=== PATIENT | female | born 1930 | race Caucasian/White ===

== ENCOUNTER 2018-02-13 16:44 | Inpatient (IN) | payer MEDICARE, BC ==
--- NOTE | 2018-02-13 16:53 | ED Physician Chart ---
ED Chief Complaint/HPI - Patient Information Date Seen:: 02/13/18 Time Seen:: 16:40 Chief Complaint:: Confusion History of Present Illness:: onset x one week of confusion, disorientation, and agitated; no report of LOC, ALOC, AMS, trauma, H/As, neck pain, C/P, SOB, Abd. Pain, A/N/V/D/C, fever, chills, SIs, or urinary s/s Historian:: Patient, Family Member Review:: Nurse's Note Reviewed ED Review of Systems - Review of Systems General/Constitutional: No fever, No chills, No weight loss, No weakness, No diaphoresis, No edema, No loss of appetite Skin: No skin lesions, No rash, No bruising Head: No headache, No light-headedness Eyes: No loss of vision, No pain, No diplopia ENT: No earache, No nasal drainage, No sore throat, No tinnitus Neck: No neck pain, No swelling, No thyromegaly, No stiffness, No mass noted Cardio Vascular: No chest pain, No palpitations, No PND, No orthopnea, No edema Pulmonary: No SOB, No cough, No sputum, No wheezing GI: No nausea, No vomiting, No diarrhea, No pain, No melena, No hematochezia, No constipation, No hematemesis G/U: No dysuria, No frequency, No hematuria, No nacturia Warp Preparer: No vaginal discharge, No abnormal vaginal bleed, No contraction Musculoskeletal: No bone or joint pain, No back pain, No muscle pain Endocrine: No polyuria, No polydipsia Psychiatric: Prior psych history, No depression, Anxiety, No suicidal ideation, No homicidal ideation, No auditory hallucination, No visual hallucination Hematopoietic: No bruising, No lymphadenopathy Allergic/Immuno: No urticaria, No angioedema Neurological: No syncope, No focal symptoms, No weakness, No paresthesia, No headache, No seizure, No dizziness, Confusion, No vertigo ED Past Medical History - Past Medical History Obtainable: Yes Past Medical History: HTN, Dyslipidemia, Dementia, Cataract Family History: Diabetes Melitus, HTN Social History: Non Smoker, No Alcohol, No Drug Use, , Care Facility Surgical History: None Psychiatricy History: Bipolar, Dementia Medication: Reviewed Family Medical History - Family Member Mother History Unknown: Yes ED Physical Exam - Physical Examination General/Constitutional: Awake, Well-developed, well-nourished, Alert, No distress, GCS 15, Non-toxic appearing, Ambulatory Head: Atraumatic Eyes: Lids, conjuctiva normal, PERRL, EOMI Skin: Nl inspection, No rash, No skin lesions, No ecchymosis, Well hydrated, No lymphadenopathy ENMT: External ears, nose nl, Nasal exam nl, Lips, teeth, gums nl Neck: Nontender, Full ROM w/o pain, No JVD, No nuchal rigidity, No bruit, No mass, No stridor Respiratory: Nl effort/Exclusion, Clear to Auscultation, No Wheeze/Rhonchi/Rales Cardio Vascular: RRR, No murmur, gallop, rubs, NL S1 S2, Carotid/Femoral/Distal pulses equal bilaterally GI: No tenderness/rebounding/guarding, No organomegaly, No hernia, Normal BS's, Nondistended, No mass/bruits, No McBurney tenderness : No CVA tenderness Extremities: No tenderness or effusion, Full ROM, normal strength in all extremities, No edema, Normal digits & nails Neuro/Psych: Alert/oriented, DTR's symmetric, Normal sensory exam, Normal motor strength, Judgement/insight normal, Mood normal, Normal gait, No focal deficits Other Neuro/Psych comments:: Disoriented and Confused; + Psychomotor Agitation; no SIs Misc: Normal back, No paraspinal tenderness ED Labs/Radiology/EKG Results - Lab Results Comments:: BUN: 29 - Radiology Results Comments:: NAD - EKG Interpretations EKG Time:: 17:26 Rate & Rhythm: 67; NSR Comments:: LVH; non-specific st-t changes ED Septic Shock - . Is Septic Shock (SBP<90, OR Lactate>4 mmol\L) present?: No ED Reassessment (Disposition) - Reassessment Reassessment Condition:: Improved - Diagnosis Diagnosis:: Medical Clearance; Dementia; Bipolar Disorder; Agitation; Psychosis - Aftercare/Follow up Instructions Aftercare/Follow-Up Instructions:: Counseled pt regarding lab results/diagnosis & need follow up, Counseled pt & family regarding lab results/diagnosis & need follow up - Patient Disposition Discharge/Transfer:: Acute Care w/in this hosp Accepting Physician:: Dr. Carney Time Called:: 1800 Time Responded:: 18:00 Admitted to:: [facility] Spoke to:: Dr. Carney Admitting Medical Physician:: Dr. Carney Admitting Psych Physician:: Dr. Hoyos Condition at Disposition:: Stable, Improved
[2018-02-13 17:14] LABS: % EOSINOPHILS 0.3 % (0.0-5.0); % LYMPHOCYTES 5.9 % (20.0-50.0); % MONOCYTES 4.7 % (2.0-10.0); % NEUTROPHILS 89.1 % (40.0-80.0); HEMATOCRIT 42.7 % (41.0-60); HEMOGLOBIN 14.2 gm/dL (12-16); LYMPHOCYTE ABSOLUTE 0.6 Th/cmm (1.5-3.0); MEAN CELL VOLUME 81.7 fl (81-100); MEAN CORPUSCULAR HEMOGLOBIN 27.1 pg (27.0-31.0); MEAN CORPUSCULAR HGB CONC 33.2 pg (28.0-36.0); MEAN PLATELET VOLUME 6.6 fl; MONOCYTE ABSOLUTE 0.5 Th/cmm (0.3-1.0); NEUTROPHILE ABSOLUTE 9.4 Th/cmm (1.8-8.0); PLATELET COUNT 302 Th/cmm (150-400); RED BLOOD COUNT 5.23 Mil/cmm (3.80-5.20); RED CELL DISTRIBUTION WIDTH 14.7 % (11.5-20.0); WHITE BLOOD COUNT 10.5 Th/cmm (4.8-10.8)
[2018-02-13 17:28] LABS: URINE MICROSCOPIC INDICATED? YES; URINE SOURCE CLEAN C
[2018-02-13 17:32] LABS: INR 0.96 (0.5-1.4)
[2018-02-13 17:32] LABS: URINE BILIRUBIN NEGATIVE (NEGATIVE); URINE BLOOD NEGATIVE (NEGATIVE); URINE GLUCOSE (UA) NEGATIVE (NEGATIVE); URINE KETONE NEGATIVE (NEGATIVE); URINE LEUKOCYTE ESTERASE NEGATIVE (NEGATIVE); URINE NITRATE NEGATIVE (NEGATIVE); URINE PH 5.5 (4.6 - 8.0); URINE PROTEIN NEGATIVE (NEGATIVE); URINE UROBILINOGEN 0.2 E.U./dL (0.2 - 1.0)
[2018-02-13 17:33] LABS: URINE CLARITY CLEAR (CLEAR); URINE COLOR YELLOW
[2018-02-13 17:38] LABS: ALB/GLOB RATIO 1.2 (1.0-1.8); ALBUMIN 3.8 gm/dL (3.7-5.3); ALKALINE PHOSPHATASE 64 U/L (34-104); ANION GAP 13.8 (7.0-16.0); BILIRUBIN,TOTAL 0.5 mg/dL (0.3-1.0); BUN - UREA NITROGEN 29 mg/dL (7-25); CALCIUM SERUM 10.3 mg/dL (8.6-10.3); CARBON DIOXIDE 20.3 mEq/L (21.0-31.0); CHLORIDE 104 mEq/L (98-107); CHOLESTEROL 197 mg/dL (<200); CREATININE - SERUM 0.8 mg/dL (0.6-1.2); CREATININE KINASE 24 U/L (30-223); GLUCOSE 134 mg/dL (70-105); HDL -HIGH DENSITY LIPOPROTEIN 57 mg/dL (23-92); POTASSIUM SERUM 4.1 mEq/L (3.5-5.1); SGOT 11 U/L (13-39); SGPT/ALT 11 U/L (7-52); SODIUM SERUM 134 mEq/L (136-145); TRIGLYCERIDES 82 mg/dL (<150)
[2018-02-13 17:39] LABS: CHOLESTEROL 197 mg/dL (<200); HDL -HIGH DENSITY LIPOPROTEIN 57 mg/dL (23-92); SALICYLATES (ASPIRIN) < 25.0 mg/L (30.0-100.0)
[2018-02-13 17:52] LABS: ACETAMINOPHEN < 10.0 ug/mL (10.0-30.0); TRIGLYCERIDES 82 mg/dL (<150)
[2018-02-13 18:01] LABS: AMPHETAMINE URINE NEGATIVE (NEGATIVE); BARBITURATES URINE NEGATIVE (NEGATIVE); CANNABINOID THC NEGATIVE (NEGATIVE); COCAINE METABOLITE QUAL URINE NEGATIVE (NEGATIVE); METHADONE URINE NEGATIVE (NEGATIVE); METHAMPHETAMINES QUAL URINE NEGATIVE (NEGATIVE); OPIATES (MORPHINE) QUAL. URINE NEGATIVE (NEGATIVE); PHENCYCLIDINE (PCP) URINE NEGATIVE (NEGATIVE); TRICYCLICS (TCA) QUAL. URINE POSITIVE (NEGATIVE)
[2018-02-13 18:02] LABS: BENZODIAZEPINES QUAL URINE NEGATIVE (NEGATIVE)
[2018-02-13 22:59] VITALS: BP 161/75
--- NOTE | 2018-02-14 07:41 | Diagnostic Imaging Report ---
Head CT without intravenous contrast Indication: Altered mental status, dementia Comparison: None Technique: Axial images were obtained from the vertex to the skull base without IV contrast. Coronal reconstructions were made. Total DLP: 635, CTDI35 FINDINGS: Images of the brain obtained without contrast demonstrate no acute hemorrhage. No mass lesions identified. The ventricles and basal cisterns are patent. The crane-white matter differentiation is preserved. There is no mass effect or midline shift. Atrophy is noted. No skull fractures identified. No soft tissue swelling. The paranasal sinuses are clear. There is trace fluid within the left mastoid air cells. IMPRESSION: No evidence of acute intracranial hemorrhage. Atrophy Trace fluid in the left mastoid air cells.
[2018-02-14 09:27] LABS: URINE EPITHELIAL CELLS OCCASIONAL /lpf (FEW)
[2018-02-14 09:28] LABS: URINE BACTERIA FEW /hpf (NONE SEEN)
[2018-02-14 16:27] LABS: A1C % 6.6 % (4.0-6.0)
--- NOTE | 2018-02-14 19:20 | Consultation ---
DATE OF CONSULTATION: 02/13/2018 MEDICAL CONSULTATION CHIEF COMPLAINT: Worsening psychosis, labile mood and loose thought process. HISTORY OF PRESENT ILLNESS: The patient is a pleasant, but very confused 87-year-old female who is a patient of mine at [facility]. She has a history of hypertension and a possible new-onset diabetes. She was found to have worsening confusion, psychosis and loose thought process as well. She was sent to the hospital to be admitted to Geropsych Unit for inpatient psychiatric care. PAST MEDICAL HISTORY: Significant for hypertension and possible diabetes. SOCIAL HISTORY: Denies any alcohol, tobacco or drug use. FAMILY HISTORY: Noncontributory. ALLERGIES: No known drug allergies. SURGICAL HISTORY: No recent surgeries. MEDICATIONS: We were unable to get a list from the facility. We have started her on lisinopril. REVIEW OF SYSTEMS: GENERAL: Positive recent confusion, worsening fatigue, loose thought process and decreased appetite. HEENT: No recent head trauma or change in vision, taste, hearing or smell. NEUROLOGIC: No history of stroke or seizure. NECK: No recent tracheal deviation. SKIN: No recent rashes. PSYCHIATRIC: Positive for psychosis and recently worsening psychosis along with a loose thought process and inability to concentrate. EXTREMITIES: No recent edema. MUSCULOSKELETAL: No history of DJD or recent falls. ABDOMEN: No recent distention. RESPIRATORY: No COPD or asthma. PHYSICAL EXAMINATION: VITAL SIGNS: Temperature 98.2 degrees, heart rate 67, respirations 18, blood pressure 161/75. Currently, in no pain. GENERAL: No acute distress. She is awake, alert to name only. She is very confused. HEENT: No acute issues. PSYCHIATRY: Labile mood. NECK: Trachea is midline. CARDIOVASCULAR: Regular rate and rhythm. SKIN: No rashes. NEUROLOGIC: No evidence of acute stroke or seizure activity. EXTREMITIES: 1+ edema in lower extremities bilaterally. LABORATORY DATA: Drug screen is positive for tricyclics. White count of 10.5, hemoglobin 14.2 and platelet count 202,000. INR is 0.96. Sodium 134, potassium 4.1, chloride 104, bicarbonate 20.3, BUN is 29, creatinine is 0.8. BNP 125. ASSESSMENT: 1. Hypertension, out of control. 2. Hyponatremia. 3. Metabolic encephalopathy. PLAN: I have started the patient on lisinopril. Follow up on hemoglobin A1c as well. Encourage fluids. Follow up on chemistry panel in a few days if needed. Discussed weight loss with the patient as well. She will be seen by Dr. Marcos for psychiatric care. JOB# [id number]
--- NOTE | 2018-02-14 22:30 | Psychosocial Evaluation ---
DATE OF SERVICE: 02/14/2018 IDENTIFYING DATA: The patient is an 87-year-old woman admitted over here for depression and mood swings. CHIEF COMPLAINT: "I don't know." HISTORY OF PRESENT ILLNESS: This is the first psychiatric hospitalization to [facility] for this patient who is reported to have been getting out of control. The patient has been reported to have been screaming and yelling and could not be contained at a lower level of care and hence the patient has been admitted over here for stabilization. Patient is hard of hearing and the patient is having difficult time to cope with the stress. Sleep and appetite prior to the hospitalization are reported to be poor. The patient has been reported to have been getting increasingly confused for the past one week.her family has been trying to relocate her to [facility] and is reported to have been stressed out with regards the move. The patient at this time is not presenting with any psychotic symptoms.Her daughter has been spoken to. Patient has been diagnosed to have Bipolar Disorder. PAST PSYCHIATRIC HISTORY: Details are not known. MEDICAL HISTORY: Physical examination is requested to be done by Dr. Carney. SUBSTANCE ABUSE HISTORY: None. PHYSICAL OR SEXUAL ABUSE HISTORY: None. LEGAL PROBLEMS: None at this time. STRENGTH AND ASSETS: The patient is motivated. MENTAL STATUS EXAMINATION: The patient is an 87-year-old woman looking her stated age, superficially cooperative. Eye contact is fair. Mood is irritable. Affect is labile. Coping skills are noted to be poor. The patient is very elated at this time and is also presenting with anxiety. Grandiose feelings are noted at this time. The patient has been having difficult time both with her short-term as well as long-term memory. Insight and judgment at this time are noted to be impaired. The patient is reported to be demanding. DIAGNOSTIC IMPRESSION: AXIS IA: Bipolar Disorder mixed with psychotic sx IB: Dementia and behavioral change, secondary to it. AXIS II: None. AXIS III: As per Dr. Carney. IMMEDIATE TREATMENT PLAN: The patient is going to be observed on inpatient unit, provided with supportive psychotherapy. The patient is going to be started with low dose of Depakote and seroquel and the patient is going to be closely monitored. Once stabilized, the patient is going to be discharged to [facility], to be followed up on an outpatient basis. JOB# [id number] MTDD
--- NOTE | 2018-02-15 08:47 | General Progress Note ---
Subjective - Review of Systems Service Date: 02/15/18 Subjective: Pt seen and eval. NAD. Pleasant, but very confused and talkative. No fevers or chills. No n,v,d or cp. No falls or sz. Denies headaches. No dysuria. Objective - Results Result Diagrams: 02/13/18 17:05 02/13/18 17:05 Recent Labs: Laboratory Last Values WBC 10.5 Th/cmm (4.8-10.8) 02/13/18 17:05 RBC 5.23 Mil/cmm (3.80-5.20) H 02/13/18 17:05 Hgb 14.2 gm/dL (12-16) 02/13/18 17:05 Hct 42.7 % (41.0-60) 02/13/18 17:05 MCV 81.7 fl (81-100) 02/13/18 17:05 MCH 27.1 pg (27.0-31.0) 02/13/18 17:05 MCHC Differential 33.2 pg (28.0-36.0) 02/13/18 17:05 RDW 14.7 % (11.5-20.0) 02/13/18 17:05 Plt Count 302 Th/cmm (150-400) 02/13/18 17:05 MPV 6.6 fl 02/13/18 17:05 Neutrophils % 89.1 % (40.0-80.0) H 02/13/18 17:05 Lymphocytes % 5.9 % (20.0-50.0) L 02/13/18 17:05 Monocytes % 4.7 % (2.0-10.0) 02/13/18 17:05 Eosinophils % 0.3 % (0.0-5.0) 02/13/18 17:05 Basophils % 0.0 % (0.0-2.0) 02/13/18 17:05 PT 10.0 SECONDS (9.5-11.5) 02/13/18 17:05 INR 0.96 (0.5-1.4) 02/13/18 17:05 Sodium 134 mEq/L (136-145) L 02/13/18 17:05 Potassium 4.1 mEq/L (3.5-5.1) 02/13/18 17:05 Chloride 104 mEq/L (98-107) 02/13/18 17:05 Carbon Dioxide 20.3 mEq/L (21.0-31.0) L 02/13/18 17:05 Anion Gap 13.8 (7.0-16.0) 02/13/18 17:05 BUN 29 mg/dL (7-25) H 02/13/18 17:05 Creatinine 0.8 mg/dL (0.6-1.2) 02/13/18 17:05 Est GFR ( Amer) TNP 02/13/18 17:05 Est GFR (Non-Af Amer) TNP 02/13/18 17:05 BUN/Creatinine Ratio 36.3 02/13/18 17:05 Glucose 134 mg/dL (70-105) H 02/13/18 17:05 Hemoglobin A1c % 6.6 % (4.0-6.0) H 02/13/18 17:05 Calcium 10.3 mg/dL (8.6-10.3) 02/13/18 17:05 Total Bilirubin 0.5 mg/dL (0.3-1.0) 02/13/18 17:05 AST 11 U/L (13-39) L 02/13/18 17:05 ALT 11 U/L (7-52) 02/13/18 17:05 Alkaline Phosphatase 64 U/L (34-104) 02/13/18 17:05 Creatine Kinase 24 U/L (30-223) L 02/13/18 17:05 Troponin I 0.01 ng/mL (0.01-0.05) 02/13/18 17:05 B-Natriuretic Peptide 125.0 pg/mL (5.0-100.0) H 02/13/18 17:05 Total Protein 7.0 gm/dL (6.0-8.3) 02/13/18 17:05 Albumin 3.8 gm/dL (3.7-5.3) 02/13/18 17:05 Globulin 3.2 gm/dL 02/13/18 17:05 Albumin/Globulin Ratio 1.2 (1.0-1.8) 02/13/18 17:05 Triglycerides 82 mg/dL (<150) 02/13/18 17:05 Cholesterol 197 mg/dL (<200) 02/13/18 17:05 LDL Cholesterol Direct 136 mg/dL (75-193) 02/13/18 17:05 HDL Cholesterol 57 mg/dL (23-92) 02/13/18 17:05 TSH 0.44 uIU/ml (0.34-5.60) 02/13/18 17:05 Urine Source CLEAN C 02/13/18 17:00 Urine Color YELLOW 02/13/18 17:00 Urine Clarity CLEAR (CLEAR) 02/13/18 17:00 Urine pH 5.5 (4.6 - 8.0) 02/13/18 17:00 Ur Specific [place] 1.010 (1.005-1.030) 02/13/18 17:00 Urine Protein NEGATIVE mg/dL (NEGATIVE) 02/13/18 17:00 Urine Glucose (UA) NEGATIVE mg/dL (NEGATIVE) 02/13/18 17:00 Urine Ketones NEGATIVE mg/dL (NEGATIVE) 02/13/18 17:00 Urine Blood NEGATIVE (NEGATIVE) 02/13/18 17:00 Urine Nitrate NEGATIVE (NEGATIVE) 02/13/18 17:00 Urine Bilirubin NEGATIVE (NEGATIVE) 02/13/18 17:00 Urine Urobilinogen 0.2 E.U./dL (0.2 - 1.0) 02/13/18 17:00 Ur Leukocyte Esterase NEGATIVE (NEGATIVE) 02/13/18 17:00 Ur Epithelial Cells OCCASIONAL /lpf (FEW) 02/13/18 17:00 Urine Bacteria FEW /hpf (NONE SEEN) 02/13/18 17:00 Salicylates < 25.0 mg/L (30.0-100.0) L 02/13/18 17:05 Urine Opiates Screen NEGATIVE (NEGATIVE) 02/13/18 17:00 Urine Methadone Screen NEGATIVE (NEGATIVE) 02/13/18 17:00 Acetaminophen < 10.0 ug/mL (10.0-30.0) L 02/13/18 17:05 Ur Barbiturates Screen NEGATIVE (NEGATIVE) 02/13/18 17:00 Ur Tricyclics Screen POSITIVE (NEGATIVE) H 02/13/18 17:00 Ur Phencyclidine Scrn NEGATIVE (NEGATIVE) 02/13/18 17:00 Amphetamines Screen NEGATIVE (NEGATIVE) 02/13/18 17:00 U Methamphetamines Scrn NEGATIVE (NEGATIVE) 02/13/18 17:00 U Benzodiazepines Scrn NEGATIVE (NEGATIVE) 02/13/18 17:00 U Cocaine Metab Screen NEGATIVE (NEGATIVE) 02/13/18 17:00 U Cannabinoids Screen NEGATIVE (NEGATIVE) 02/13/18 17:00 Ethyl Alcohol < 10 mg/dL (0-10) 02/13/18 17:05 - Physical Exam Vitals and I&O: Vital Signs Temp 97.6 F 02/15/18 06:14 Pulse 71 02/15/18 06:14 Resp 20 02/15/18 06:14 BP 147/71 02/15/18 06:14 Pulse Ox 97 02/15/18 06:14 Intake & Output 02/14/18 02/15/18 02/15/18 18:59 06:59 18:59 Intake Total 1200 480 Balance 1200 480 Intake: Oral 1200 480 Other: # Voids 3 1 Active Medications: Current Medications Escitalopram Oxalate (Lexapro) 5 mg PO DAILY GIN PRN Reason: Protocol Stop: 04/16/18 08:59 Lisinopril (Zestril) 20 mg PO DAILY GIN Stop: 04/15/18 08:59 Last Admin: 02/14/18 09:25 Dose: 20 mg Lorazepam (Ativan) 0.5 mg PO Q6HR PRN; Protocol PRN Reason: Anxiety Stop: 03/15/18 20:04 Last Admin: 02/14/18 15:25 Dose: 0.5 mg Metformin HCl (Glucophage) 500 mg PO BID GIN Stop: 04/16/18 08:59 Zolpidem Tartrate (Ambien) 5 mg PO HS PRN PRN Reason: Insomnia Stop: 04/14/18 20:04 Last Admin: 02/14/18 22:40 Dose: 5 mg General: No acute distress HEENT: Atraumatic, PERRLA, EOMI Neck: Supple, no JVD, no Thyromegaly Cardiovascular: Regular rate, Normal S1, Normal S2 Lungs: Clear to auscultation Assessment/Plan - Problem List Patient Problems: All Active Problems INCREASED CONFUSION SECONDARY TO STRESS (Acute) - Assessment Assessment: DM-OOC Hyponatremia - Plan Plan: Start metformin. Discussed side effects. Discussed weight loss and healthy diet. FU on chem panel next week.
[2018-02-15] MEDS ORDERED: Escitalopram Oxalate 5 mg Tab PO SCH (09:00)
--- NOTE | 2018-02-16 05:26 | Progress Notes ---
DATE: 02/15/2018 SUBJECTIVE: Staff was spoken to. The patient is interviewed. The patient's insight and judgment are noted to be still impaired. Impulse control is noted to be poor. The patient has both grandiose delusions as well as paranoia. The patient's daughter has been spoken to and the patient at this time has been talking about her being a psychologist and the patient is ____ talking about the psychological terms. The patient has been going on tangent. Insight and judgment at this time are noted to be very much impaired. Impulse control seems to be poor. Coping skills are noted to be poor. The patient has been having acute mood swings. No side effects to the medications are noted. The patient is going to be placed on a mood stabilizer to contain her mood swings and the patient's family has been informed of the same. ASSESSMENT: The patient is still impulsive. PLAN: To continue the patient with the supportive therapy. I encouraged the patient to verbalize the concerns rather than to act out. Please note that the patient is not ready to be discharged to a lower level of care in view of her acute mood swings and confusion. JOB# [id number]
--- NOTE | 2018-02-17 05:23 | Progress Notes ---
DATE: 02/16/2018 PSYCHIATRIC PROGRESS NOTE SUBJECTIVE: Staff was spoken to. The patient is interviewed. Mood is noted to be depressed. Affect is constricted. Today, the patient is isolative and withdrawn. The patient is stating that he has been having a lot of family issues that she needs to take care. The patient's coping skills at this time are noted to be poor. No side effects to the medications are noted. The patient has been having difficult time to cope with the stress at this time. ASSESSMENT: The patient is depressed today. PLAN: To continue the patient with supportive therapy. I encouraged the patient to verbalize the concerns rather than to act out. JOB# [id number]
--- NOTE | 2018-02-17 16:24 | Progress Notes ---
DATE: 02/17/2018 SUBJECTIVE: Staff was spoken to. Patient is interviewed. Mood is noted to be irritable. Affect is constricted. The patient continues to be irritated in her mood. Insight and judgment are noted to be still impaired. The patient goes on a tangent. The patient has been having difficult time to focus. Sleep is noted to be poor. Appetite is noted to be improving. No side effects to the Seroquel and Depakote are noted. ASSESSMENT: The patient is still having mood swings. PLAN: To continue the patient with the supportive therapy and followup. JOB# [id number]
--- NOTE | 2018-02-18 16:44 | Progress Notes ---
DATE: 02/18/2018 PSYCHIATRIC PROGRESS NOTE SUBJECTIVE: Staff was spoken to. The patient is interviewed. Mood is noted to be less irritable. The patient's family has been visiting and daughter mentioned that the patient is passed a lot of ____ and has been going on talking too much. Coping skills at the time of the evaluation are still poor. The patient's family wants to relocate the patient to [facility]. ASSESSMENT: The patient is still having mood swings. PLAN: To continue the patient with the supportive therapy and encourage the patient to verbalize the concerns rather than to act out. JOB# [id number]
--- NOTE | 2018-02-19 02:25 | Consultation ---
DATE OF CONSULTATION: 02/16/2018 REQUESTING PHYSICIAN: Tony Marcos M.D. TYPE OF CONSULTATION: Psychology. HISTORY OF PRESENT ILLNESS: The patient is an 87-year-old female patient. She is being admitted for depression and mood fluctuations. The following is by review of the medical record and by the patient's self report. According to record review, the patient had been reported by the staff at her facility to be screaming and yelling and was unable to be contained or redirected and was seemingly uncontrollable. The patient presents as hard of hearing. The patient also presents as quite confused. However, the patient continued to ask for her daughter and that this principal technical writer should contact her daughter for the information to the questions this principal technical writer has been asking. The patient denied any suicidal ideation, plan or intention. PAST MEDICAL HISTORY: Please see history and physical by Dr. Carney. PAST PSYCHIATRIC HISTORY: According to record review, the patient has a history of bipolar disorder. It is unknown whether there have been previous hospitalizations. The patient is under the care of a psychiatrist at her facility. SUBSTANCE ABUSE HISTORY: None. CURRENT MEDICATIONS: Please see admission medication reconciliation. ALLERGIES: No known drug allergies. PSYCHOSOCIAL HISTORY: The patient reported that her daughter has been her caregiver for many years and that her daughter is who this principal technical writer or any other healthcare provider should be talking to for information. The patient did not answer further questions about occupational or educational history. The patient answered yes to the question if she was Adventist; however, her pentecostal affiliation is unestablished. The patient did not answer questions about physical or sexual abuse or any legal issues at the time of this clinical interview MENTAL STATUS EXAMINATION: The patient appears to be her stated age. The patient's attitude is superficially cooperative. Eye contact is fair. Mood is irritable and dysphoric. Affect is labile. Speech is pressured and rambling at times. Mood seems to be fluctuating and there seems to be an anxiety component present as well. Thought process shows that there may be some grandiose type of delusions, this needs further evaluation. The patient denied any auditory or visual hallucinations. Impulse control is fair. Concentration is fair. The patient's short-term memory and terminal make up operator memory seemed to be somewhat impaired at the time of the interview. Sensorium is alert and oriented to person and place only. The patient did not participate in the interpretation of proverbs. Insight is poor. Judgment is compromised. DIAGNOSTIC IMPRESSION: AXIS I: 1. History of bipolar disorder mixed with psychotic symptoms. 2. Provisional diagnosis of dementia with behavioral disturbance. AXIS II: Deferred. AXIS III: Please see history and physical by Dr. Carney. PLAN: The patient has been seen by Dr. Marcos for psychiatric evaluation for the management of the patient's psychotropic medications. The patient has been started on a low dose of Depakote and Seroquel and will be closely monitored. We will provide reality orientation and reality integration. We will provide supportive therapy to include motivational enhancement for the patient to become compliant and stay compliant with all aspects of her care and treatment plan. We will provide coping strategies for chronic long-term illness to decrease her depression including phase of life issues. We will contact the patient's daughter since the patient has requested that she be involved in all aspects of her treatment and care. Thank you, Dr. Marcos for this consult and the opportunity to participate with you in this patient's care. JOB# [id number] PRO
--- NOTE | 2018-02-20 03:07 | Progress Notes ---
DATE: 02/19/2018 SUBJECTIVE: Staff was spoken to. The patient is interviewed. Mood is noted to be less irritable. The patient is stating that the family [place] go [place] one of the daughter's and the patient is stating that she has been in [facility] all her life and she does not want to go there. She states that she has friends in ____ and she is going to go up [place] only maybe a year or two before she dies. The patient is very angry and upset with the family's plan to move her from here. ASSESSMENT: The patient is still having mood swings. PLAN: To continue the patient with the supportive therapy. I encouraged the patient to verbalize the concerns rather than to act out. [facility]# [id number]
--- NOTE | 2018-02-20 19:52 | Progress Notes ---
DATE: 02/20/2018 SUBJECTIVE: Staff was spoken to. The patient is interviewed. Mood is irritable and affect is constricted. The patient is stating that the family is trying to get her to [facility], but she states that all her life she has been in [place] and she does not want to leave. Coping skills at this time are noted to be poor. Insight and judgment also to be still impaired. ASSESSMENT: The patient is still irritable. PLAN: To continue the patient with the current medications and work with the case repairer with regards to the discharge of this patient. JOB# [id number]
--- NOTE | 2018-02-21 14:31 | Discharge Summary ---
DATE OF DISCHARGE: 02/21/2018 IDENTIFYING DATA: The patient is an 87-year-old woman admitted for depression and mood swing. CHIEF COMPLAINT: "I don't know." DIAGNOSES AT THE TIME OF ADMISSION: AXIS I: Bipolar disorder, mixed. AXIS II: None. AXIS III: As per the primary care physician, Dr. Carney. HOSPITAL COURSE AND RESPONSE TO TREATMENT: Please refer to 02/14/2018 dictation done by me for. HOSPITAL COURSE AND response to treatment. The patient's blood work has been reviewed by Dr. Carney. No major intervention was needed. HOSPITAL COURSE AND RESPONSE TO TREATMENT: The patient has been started on the valproic acid, which was given 125 mg twice a day, Seroquel was given 25 mg at bedtime. The patient with these medications has been observed and was noted to be doing fairly well. The patient's major concern has been that [place] and she wants to be there in [place]. The patient has finally been coming down and the patient's daughter is going to be taking the patient and the possibly taking [place] her [place]. MENTAL STATUS EXAMINATION: At the time of discharge, patient's mood to be anxious. Affect is appropriate. Not suicidal or homicidal. Insight and judgment are fair. Impulse control is also noted to be fair. The patient has been able to verbalize the concerns rather than to act out at the time of the discharge. DIAGNOSES AT THE TIME OF DISCHARGE: AXIS I: Bipolar disorder, mixed. AXIS II: None. AXIS III: Diabetes mellitus. AFTER CARE PLAN: The patient is discharged to the family for followup on outpatient basis. [facility]# [id number]
== END 2018-02-21 11:30 | DRG 885 ==
LOC: ER 16:44 → GERO2 18:25
PROVIDERS: ADMIT Psychiatry & Neurology Psychiatry; ATTEND Psychiatry & Neurology Psychiatry
DX: F31.60 Bipolar disorder, current episode mixed, unspecified (principal); G93.41 Metabolic encephalopathy; F03.91 Unspecified dementia, unspecified severity, with behavioral disturbance; E87.1 Hypo-osmolality and hyponatremia; I10 Essential (primary) hypertension; E78.5 Hyperlipidemia, unspecified; H26.9 Unspecified cataract; E11.9 Type 2 diabetes mellitus without complications; Z83.3 Family history of diabetes mellitus; Z82.49 Family history of ischemic heart disease and other diseases of the circulatory system
CPT/HCPCS: 36415-UA; 70450-TC; 80053-TC; 80061-TC; 80307; 80320-TC; 80329-TC; 81001-TC; 82550-TC; 83036-90; 83880-TC; 84443-TC; 84484-TC; 85007-TC; 85025-TC; 85027-TC; 85610-TC; 86592-TC; 90899; 93005; 94760; G0410; Z7610